=== PATIENT | female | born 1995 | race Caucasian/White ===

== ENCOUNTER 2017-07-19 13:30 | Emergency (ER) | payer OTHER ==
[~2017-07-19 13:30] MED LIST: NEXP68IM
[2017-07-19 13:32] VITALS: BP 145/82; PULSE 110; RESP 20; TEMP 98.8; O2SAT 99
--- NOTE | 2017-07-19 14:59 | PD ---
HPI Chief Complaint: Related Problem Time Seen by Provider: 13:44 Travel History International Travel<30 days: No Contact w/Intl Traveler<30days: No Traveled to known affect area: No History of Present Illness HPI This is a 21-year-old female who presents to the emergency department with 1 week of intermittent vaginal bleeding, moderate severity, changing her pad every 3-4 hours, similar to normal Except with more cramping. She went to the health department today to try to get control pills but they did a urine test which was slightly positive. She confirmed her with a second urine test and came to the emergency department. She's never been before. PFSH Past Medical History Medical History: Denies Significant Hx ADHD: Yes ("MAYBE") Weight (Kg): 3 Depression: Yes Cancer: No Cardiovascular Problems: No Diabetes: No Diminished Hearing: No Headaches: Yes (sumatripin) Psychiatric: Yes (PTSD) Immunizations Current: Yes Migraines: No Seizures: No Thyroid Disease: No Ulcer: No ?: LMP: 07/13/2017 Menopausal: No : 1 Past Surgical History Surgical History: No Previous Surgery Section: No Other Surgery: No Social History Alcohol Use: Yes (occasionally) Tobacco Use: No Substance Use: Yes (MARIJUANA USES DAILY) Allergies-Medications (Allergen,Severity, Reaction): Coded Allergies: No Known Allergies (Unverified Adverse Reaction, Unknown, 07/19/17) Reported Meds & Prescriptions Reported Meds & Active Scripts Active No Active Prescriptions or Reported Medications Review of Systems Except as stated in HPI: all other systems reviewed are Neg Physical Exam Narrative GENERAL:Well appearing, no acute distress SKIN: Focused skin assessment warm and dry. HEAD: Atraumatic. Normocephalic. EYES: Pupils equal and round. No injection or drainage. ENT: Moist mucous membranes NECK: Trachea midline. CARDIOVASCULAR: Regular rate and rhythm. No murmur appreciated. RESPIRATORY: Clear to auscultation. Breath sounds equal bilaterally. GASTROINTESTINAL: Abdomen soft, non-tender, nondistended. HADOOP ARCHITECT: Scant amount of dark blood in the vault with a closed cervix MUSCULOSKELETAL: No obvious deformities. NEUROLOGICAL: Awake and alert. No obvious cranial nerve deficits. Moving all extremities. PSYCHIATRIC: Appropriate mood and affect; insight and judgment normal. Data Data Last Documented VS Vital Signs Date Time Temp Pulse Resp B/P (MAP) Pulse Ox O2 Delivery O2 Flow Rate FiO2 07/19/17 13:32 98.8 110 20 145/82 (103) 99 Orders Orders Complete Blood Count With Diff (07/19/17 13:45) Comprehensive Metabolic Panel (07/19/17 13:45) ^ Insert Iv (07/19/17 13:45) Beta Hcg (Quant/Titer) (07/19/17 13:45) Type And Screen (07/19/17 13:45) Labs Laboratory Tests Test 07/19/17 14:25 White Blood Count 8.6 TH/MM3 Red Blood Count 4.63 MIL/MM3 Hemoglobin 14.4 GM/DL Hematocrit 42.8 % Mean Corpuscular Volume 92.3 FL Mean Corpuscular Hemoglobin 31.2 PG Mean Corpuscular Hemoglobin Concent 33.8 % Red Cell Distribution Width 13.3 % Platelet Count 280 TH/MM3 Mean Platelet Volume 8.4 FL Neutrophils (%) (Auto) 68.3 % Lymphocytes (%) (Auto) 24.3 % Monocytes (%) (Auto) 6.7 % Eosinophils (%) (Auto) 0.3 % Basophils (%) (Auto) 0.4 % Neutrophils # (Auto) 5.9 TH/MM3 Lymphocytes # (Auto) 2.1 TH/MM3 Monocytes # (Auto) 0.6 TH/MM3 Eosinophils # (Auto) 0.0 TH/MM3 Basophils # (Auto) 0.0 TH/MM3 CBC Comment DIFF FINAL Differential Comment Blood Urea Nitrogen 8 MG/DL Creatinine 0.72 MG/DL Random Glucose 80 MG/DL Total Protein 7.5 GM/DL Albumin 3.9 GM/DL Calcium Level 8.6 MG/DL Alkaline Phosphatase 83 U/L Aspartate Amino Transf (AST/SGOT) 16 U/L Alanine Aminotransferase (ALT/SGPT) 30 U/L Total Bilirubin 0.2 MG/DL Sodium Level 139 MEQ/L Potassium Level 3.7 MEQ/L Chloride Level 107 MEQ/L Carbon Dioxide Level 26.2 MEQ/L Anion Gap 6 MEQ/L Estimat Glomerular Filtration Rate 104 ML/MIN Human Chorionic Gonadotropin, Quant 62 MIU/ML MDM Medical Decision Making Medical Screen Exam Complete: Yes Emergency Medical Condition: Yes Interpretation(s) afebrile, tachycardic, hypertensive no leukocytosis electrolytes within normal limits hcg 62 blood type o positive Differential Diagnosis Threatened miscarriage, completed miscarriage, ectopic Narrative Course This is a 21-year-old female who presents to the emergency department with vaginal bleeding and positive test. Patient's hCG is 60 which is quite low. I suspect she's had a miscarriage but given the possibility of early or ectopic, patient was advised to have repeat hCG done in 2 days. Blood type is Rh+. Labs are otherwise reassuring and physical exam is benign. Patient is appropriate for discharge. Diagnosis Primary Impression: Threatened miscarriage Patient Instructions: General Instructions Additional Instructions: It is very important that you return to the emergency department for repeat HCG in 2 days. If you develop severe abdominal pain, fever, persistent vomiting or inability to eat, heavy vaginal bleeding using more than one pad an hour, lightheadedness , dizziness, chest pain or shortness of breath return to the emergency department immediately. Followup with your dough cutting machine operator as soon as possible. Take Tylenol as needed for pain. Med/Other Pt SpecificInfo: No Change to Meds Scripts No Active Prescriptions or Reported Meds Disposition: 01 DISCHARGE HOME Condition: Stable Wendy Chiu MD Jul 19, 2017 14:59
[2017-07-19 15:03] LABS: AUTOMATED NEUTROPHIL # 5.9 TH/MM3 (1.8-7.7); BASOPHIL % 0.4 % (0.0-2.0); EOSINOPHIL % 0.3 % (0.0-4.0); HEMATOCRIT 42.8 % (35.0-46.0); HEMO FLAGS DIFF FINAL; LYMPH % 24.3 % (9.0-44.0); LYMPHOCYTE # 2.1 TH/MM3 (1.0-4.8); MEAN CELL VOLUME 92.3 FL (80.0-100.0); MEAN CORPUSCULAR HEMOGLOBIN 31.2 PG (27.0-34.0); MEAN CORPUSCULAR HGB CONC 33.8 % (32.0-36.0); MONO % 6.7 % (0.0-8.0); NEUT % 68.3 % (16.0-70.0); PLATELET COUNT 280 TH/MM3 (150-450); RED BLOOD COUNT 4.63 MIL/MM3 (4.00-5.30); RED CELL DISTRIBUTION WIDTH 13.3 % (11.6-17.2); WHITE BLOOD COUNT 8.6 TH/MM3 (4.0-11.0)
[2017-07-19 15:30] LABS: ALT (GPT) 30 U/L (9-42); ANION GAP 6 MEQ/L (5-15); AST (GOT) 16 U/L (16-38); BICARBONATE 26.2 MEQ/L (21.0-32.0); BLOOD UREA NITROGEN 8 MG/DL (7-18); CHLORIDE 107 MEQ/L (98-107); GLOMERULAR FILTRATION RATE 104 ML/MIN (>89); POTASSIUM 3.7 MEQ/L (3.5-5.1); SODIUM (NA) 139 MEQ/L (136-145)
[2017-07-19 15:35] LABS: ALKALINE PHOSPHATASE 83 U/L (45-117); BETA HCG QUANT 62 MIU/ML (0-5); TOTAL BILIRUBIN ADULT 0.2 MG/DL (0.2-1.0)
== END 2017-07-19 16:16 | disposition home or self-care (01) ==
LOC: NEPD 13:30
DX: O20.0 Threatened abortion (principal); R00.0 Tachycardia, unspecified; I10 Essential (primary) hypertension; O99.341 Other mental disorders complicating pregnancy, first trimester; F90.9 Attention-deficit hyperactivity disorder, unspecified type; F43.10 Post-traumatic stress disorder, unspecified
CPT/HCPCS: 80053; 84702; 85025; 86850; 86900; 86901; 99285

== ENCOUNTER 2017-07-21 13:51 | Emergency (ER) | payer SELFPAY ==
[2017-07-21 13:53] VITALS: BP 129/84; PULSE 95; RESP 14; TEMP 98.3; O2SAT 99
[2017-07-21 15:57] LABS: BETA HCG QUANT 81 MIU/ML (0-5)
--- NOTE | 2017-07-21 16:29 | PD ---
HPI Chief Complaint: Medical Clearance Time Seen by Provider: 16:12 Travel History International Travel<30 days: No Contact w/Intl Traveler<30days: No Traveled to known affect area: No History of Present Illness HPI 21-year-old approximately 5 week female presents to the emergency room for beta HCG recheck. Patient found out she was 2 days ago at the health department when she went to [facility] control. She came to the emergency room and had a beta hCG drawn which was 62. Patient was advised to return in 2 days for repeat beta hCG because of the bleeding. She is Rh+. States she has no significant pain. Reports mild cramping like a period. She does not have an SEEDLING SORTER. States she initially was bleeding heavily but over the past several days she she has been spotting. PFSH Past Medical History ADHD: Yes ("MAYBE") Depression: Yes Cancer: No Cardiovascular Problems: No Diabetes: No Diminished Hearing: No Headaches: Yes (sumatripin) Psychiatric: Yes (PTSD) Immunizations Current: Yes Migraines: No Seizures: No Thyroid Disease: No Ulcer: No ?: Menopausal: No : 1 Past Surgical History Section: No Other Surgery: No Social History Alcohol Use: Yes (occasionally) Tobacco Use: No Substance Use: Yes (MARIJUANA USES DAILY) Allergies-Medications (Allergen,Severity, Reaction): Coded Allergies: No Known Allergies (Unverified Adverse Reaction, Unknown, 07/19/17) Reported Meds & Prescriptions Reported Meds & Active Scripts Active No Active Prescriptions or Reported Medications Review of Systems Except as stated in HPI: all other systems reviewed are Neg Physical Exam Narrative GENERAL: Well-nourished, well-developed female in no acute distress. Afebrile. Ambulatory. SKIN: Focused skin assessment warm/dry. HEAD: Normocephalic. EYES: No scleral icterus. No injection or drainage. NECK: Supple, trachea midline. No JVD or lymphadenopathy. CARDIOVASCULAR: Regular rate and rhythm without murmurs, gallops, or rubs. RESPIRATORY: Breath sounds equal bilaterally. No accessory muscle use. GASTROINTESTINAL: Abdomen soft, non-tender, nondistended. No pelvic tenderness. Data Data Last Documented VS Vital Signs Date Time Temp Pulse Resp B/P (MAP) Pulse Ox O2 Delivery O2 Flow Rate FiO2 07/21/17 13:53 98.3 95 14 129/84 (99) 99 Orders Orders Beta Hcg (Quant/Titer) (07/21/17 14:01) Ed Discharge Order (07/21/17 16:34) Labs Laboratory Tests Test 07/21/17 14:47 Human Chorionic Gonadotropin, Quant 81 MIU/ML MDM Medical Decision Making Medical Screen Exam Complete: Yes Emergency Medical Condition: Yes Medical Record Reviewed: Yes Differential Diagnosis Threatened miscarriage, completed miscarriage, , ectopic Narrative Course 21-year-old female approximately 5 weeks presents to the emergency room for hCG recheck. Patient came to the emergency room 2 days ago and had beta drawn which was 62. Told to return in 2 days for repeat because of bleeding. She is Rh+. Denies any significant or severe abdominal pain. Reports moderate cramping. Repeat hCG is 81. Patient was informed that the number should double every day and her number is significantly lower than expected. Too low to register on ultrasound. She is likely having a miscarriage. Patient was told to follow-up in 2 days for repeat hCG to confirm or return for worsening symptoms. She understands and agrees to plan. Diagnosis Primary Impression: Threatened miscarriage in early Referrals: Access Coordinator Additional Instructions: Follow-up in 2 days for repeat beta hCG or sooner for worsening/severe pain. Follow-up with an recruiting and selection consultant. Return to the emergency room for worsening symptoms. Med/Other Pt SpecificInfo: Prescription(s) given Scripts No Active Prescriptions or Reported Meds Disposition: 01 DISCHARGE HOME Condition: Stable Kylee Rodrigez Jul 21, 2017 16:29
== END 2017-07-21 16:52 | disposition home or self-care (01) ==
LOC: NEPK 13:51
DX: O20.0 Threatened abortion (principal); Z3A.01 Less than 8 weeks gestation of pregnancy
CPT/HCPCS: 84702; 99281

== ENCOUNTER 2017-10-05 10:29 | Emergency (ER) | payer OTHER ==
[~2017-10-05] VITALS: Ht 170.2 cm; Wt 60.0 kg
[~2017-10-05 10:29] MED LIST changes: +METR-1 PO; -NEXP68IM
[2017-10-05 10:56] VITALS: BP 113/63; PULSE 101; RESP 22; TEMP 98.2; O2SAT 99
[2017-10-05 12:15] LABS: BASOPHIL % 0.3 % (0.0-2.0); EOSINOPHIL % 0.3 % (0.0-4.0); HEMATOCRIT 40.5 % (35.0-46.0); LYMPH % 16.6 % (9.0-44.0); LYMPHOCYTE # 1.3 TH/MM3 (1.0-4.8); MEAN CELL VOLUME 91.7 FL (80.0-100.0); MEAN CORPUSCULAR HEMOGLOBIN 31.7 PG (27.0-34.0); MEAN CORPUSCULAR HGB CONC 34.6 % (32.0-36.0); MEAN PLATELET VOLUME 8.4 FL (7.0-11.0); MONO % 6.9 % (0.0-8.0); MONOCYTE # 0.5 TH/MM3 (0-0.9); NEUT % 75.9 % (16.0-70.0); PLATELET COUNT 237 TH/MM3 (150-450); RED BLOOD COUNT 4.42 MIL/MM3 (4.00-5.30); RED CELL DISTRIBUTION WIDTH 13.3 % (11.6-17.2); WHITE BLOOD COUNT 7.9 TH/MM3 (4.0-11.0)
[2017-10-05 12:30] LABS: ALBUMIN 3.2 GM/DL (3.4-5.0); AST (GOT) 13 U/L (16-38); BICARBONATE 26.1 MEQ/L (21.0-32.0); BLOOD UREA NITROGEN 8 MG/DL (7-18); CALCIUM 8.5 MG/DL (8.5-10.1); CHLORIDE 107 MEQ/L (98-107); CREATININE 0.56 MG/DL (0.50-1.00); GLOMERULAR FILTRATION RATE 138 ML/MIN (>89); GLUCOSE,RANDOM 90 MG/DL (74-106); SODIUM (NA) 139 MEQ/L (136-145)
[2017-10-05 12:46] LABS: ALKALINE PHOSPHATASE 71 U/L (45-117); ALT (GPT) 20 U/L (9-42); TOTAL BILIRUBIN ADULT 0.2 MG/DL (0.2-1.0); TOTAL PROTEIN 6.9 GM/DL (6.4-8.2)
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
[2017-10-05 14:00] VITALS: BP 116/75; PULSE 89; RESP 16; O2SAT 100
[2017-10-05 14:05] VITALS: BP 126/79; PULSE 101; RESP 18; O2SAT 98
[2017-10-05 18:15] VITALS: BP 122/76; PULSE 87; RESP 18; O2SAT 100
[2017-10-06 02:21] VITALS: BP 113/59; PULSE 88; RESP 16; O2SAT 98
[2017-10-06 06:51] VITALS: BP 97/66; PULSE 102; RESP 18; O2SAT 100
[2017-10-06 10:12] VITALS: BP 114/61; PULSE 101; RESP 16; O2SAT 100
--- NOTE | 2017-10-06 11:26 | PD ---
Physical Exam Time Seen by Provider: 11:[address] Rodriguez has evaluated the patient, lifted the Graff act and cleared the patient for discharge. Data Data Last Documented VS Vital Signs Date Time Temp Pulse Resp B/P (MAP) Pulse Ox O2 Delivery O2 Flow Rate FiO2 10/06/17 10:12 101 16 114/61 (78) 100 Room Air 10/05/17 10:56 98.2 Orders Orders Diet Regular Basic (10/05/17 Lunch) Complete Blood Count With Diff (10/05/17 11:12) Comprehensive Metabolic Panel (10/05/17 11:12) Beta Hcg (Quant/Titer) (10/05/17 11:12) Ed Urine Pregnancytest Poc (10/05/17 11:12) Psych Screen (10/05/17 11:12) Drug Screen, Random Urine (10/05/17 11:12) Diet Regular Basic (10/05/17 Dinner) Diet Regular Basic (10/06/17 Breakfast) Diet Regular Basic (10/06/17 Lunch) Labs Laboratory Tests Test 10/05/17 11:45 10/05/17 11:50 White Blood Count 7.9 TH/MM3 Red Blood Count 4.42 MIL/MM3 Hemoglobin 14.0 GM/DL Hematocrit 40.5 % Mean Corpuscular Volume 91.7 FL Mean Corpuscular Hemoglobin 31.7 PG Mean Corpuscular Hemoglobin Concent 34.6 % Red Cell Distribution Width 13.3 % Platelet Count 237 TH/MM3 Mean Platelet Volume 8.4 FL Neutrophils (%) (Auto) 75.9 % Lymphocytes (%) (Auto) 16.6 % Monocytes (%) (Auto) 6.9 % Eosinophils (%) (Auto) 0.3 % Basophils (%) (Auto) 0.3 % Neutrophils # (Auto) 6.0 TH/MM3 Lymphocytes # (Auto) 1.3 TH/MM3 Monocytes # (Auto) 0.5 TH/MM3 Eosinophils # (Auto) 0.0 TH/MM3 Basophils # (Auto) 0.0 TH/MM3 CBC Comment DIFF FINAL Differential Comment Blood Urea Nitrogen 8 MG/DL Creatinine 0.56 MG/DL Random Glucose 90 MG/DL Total Protein 6.9 GM/DL Albumin 3.2 GM/DL Calcium Level 8.5 MG/DL Alkaline Phosphatase 71 U/L Aspartate Amino Transf (AST/SGOT) 13 U/L Alanine Aminotransferase (ALT/SGPT) 20 U/L Total Bilirubin 0.2 MG/DL Sodium Level 139 MEQ/L Potassium Level 3.7 MEQ/L Chloride Level 107 MEQ/L Carbon Dioxide Level 26.1 MEQ/L Anion Gap 6 MEQ/L Estimat Glomerular Filtration Rate 138 ML/MIN Human Chorionic Gonadotropin, Quant 60756 MIU/ML Urine Opiates Screen NEG Urine Barbiturates Screen NEG Urine Amphetamines Screen NEG Urine Benzodiazepines Screen NEG Urine Cocaine Screen NEG Urine Cannabinoids Screen POS MDM Supervised Visit with MERVIN: No Narrative Course Dr. Rodriguez has evaluated the patient, lifted the Graff act and cleared the patient for discharge. Patient contracts safety. Denies suicidal or homicidal ideations. Patient will be provided community resource packet to [facility] for follow-up. Has friends and family for support. Patient was medically cleared by alternate provider prior to psych screening. Patient has been evaluated by psychiatry and and is now cleared for discharge. Diagnosis Primary Impression: Disruptive mood dysregulation disorder Referrals: [facility] (Out patient) [facility] Primary Care Physician Psychiatrist Narciso [facility] Patient Instructions: General Instructions Departure Forms: Tests/Procedures Additional Instruction: Contract safety to your self and others Follow-up with psychiatry Follow-up with primary care provider Follow-up with Ronan Wiley Return to the emergency department immediately with worsening of symptoms Med/Other Pt SpecificInfo: No Change to Meds, No Meds Exist/No RX given Disposition: 01 DISCHARGE HOME Condition: Stable Arlette Wild Oct 06, 2017 11:26
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
== END 2017-10-06 11:41 | disposition home or self-care (01) ==
LOC: NEPJ 10:29
DX: O99.340 Other mental disorders complicating pregnancy, unspecified trimester (principal); F34.81 Disruptive mood dysregulation disorder; Z3A.00 Weeks of gestation of pregnancy not specified
CPT/HCPCS: 80053; 80307; 84702; 84703; 85025; 99283